=== PATIENT | female | born 1955 | race Caucasian/White ===

== ENCOUNTER 2016-10-30 00:53 | Emergency (ER) | payer OTHER ==
[~2016-10-30] VITALS: Ht 157.5 cm; Wt 68.0 kg
[2016-10-30 01:07] VITALS: Ht 157.5 cm; Wt 68.0 kg
[2016-10-30] MEDS ORDERED: ACETAMINOPHEN 500 MG TAB PO STA (01:55)
[2016-10-30 02:22] VITALS: BP 166/89; PULSE 66; RESP 16
--- NOTE | 2016-10-30 02:24 | RADRPT ---
PROCEDURE: Noncontrast CT Head. CLINICAL INDICATION: Headache. TECHNIQUE: Noncontrast CT of the head was obtained. The administered radiation dose was CTDI vol = 44 mGy, DLP = 720 mGy-cm. COMPARISON: No pertinent prior examinations were submitted for comparison. FINDINGS: The ventricles and sulci are within normal limits. There is no acute intracranial hemorrhage or ext ra-axial fluid collection. There is no mass effect. No midline shift is identified. There is no loss of luna-white differentiation to suggest acute infarction. The orbits are within normal limits. The paranasal sinuses and mastoid air cells are without fluid. No destructive osseous lesion is identified. IMPRESSION: No acute findings. RPTAT: HIKT .Don Elizalde MD, MD Date Time Electronically viewed and signed by .Don Elizalde MD, on 10/30/2016 02:23 .T/
--- NOTE | 2016-10-30 02:31 | ERD ---
ER Documentation Chief Complaint Date/Time DATE: 10/30/16 TIME: 02:29 Chief Complaint hypertension, hx- htn taking bp meds HPI 61-year-old female history of essential hypertension who presents the emergency room with elevated blood pressure and headache. She describes several days of increased blood pressure, it was high as 200s at home, now 180s systolic. She describes a gradual onset diffuse frontal headache that is throbbing and moderate approximately 3 out of 10. No neck pain no chest pain no shortness of breath. She states compliance with medications. ROS All systems reviewed and are negative except as per history of present illness. Allergies Allergies: Coded Allergies: No Known Allergy (Unverified , 10/30/16) FmHx Family History: No diabetes Physical Exam Vitals Vital Signs Date Time Temp Pulse Resp B/P Pulse Ox O2 Delivery O2 Flow Rate FiO2 10/30/16 02:22 66 16 166/89 99 Room Air 10/30/16 01:55 62 16 180/90 100 Room Air 10/30/16 01:07 98.3 67 20 174/87 98 Physical Exam General: Well developed, well nourished, no acute distress Head: Normocephalic, atraumatic. Eyes: Pupils equally reactive, EOM intact ENT: Moist mucous membranes Neck: Supple, no lymphadenopathy Respiratory: Lungs clear bilaterally, no distress Cardiovascular: RRR, no murmurs, rubs, or gallops Abdominal: Soft, non-tender, non-distended, no peritoneal signs : Deferred MSK: No edema, no unilateral swelling, 5/5 strength Neurologic: Alert and oriented, moving all extremities, normal speech, no focal weakness, no cerebellar signs Skin: No rash Psych: Normal mood Results 24 hrs Current Medications Medications (Trade) Dose Ordered Sig/Jennifer Route PRN Reason Start Time Stop Time Status Last Admin Dose Admin Acetaminophen (Tylenol Tab) 1,000 mg ONCE STAT PO 10/30/16 01:55 10/30/16 01:56 DC 10/30/16 02:02 Procedures/MDM EKG, MONITORS, & DIAGNOSTIC IMAGING: CT brain: No acute process MEDICAL DECISION MAKING: Patient's blood pressure was elevated (>120/80) but appears stable without evidence of hypertensive emergency or urgency. The patient was counseled about the risks of hypertension and urged to pursue outpatient monitoring and therapy within a week with their primary care physician. ER COURSE: The patient does have a headache therefore CT imaging of the head is appropriate. She does not have chest pain or shortness of breath or anginal equivalent, no indication for laboratory testing or EKG. The patient was given Tylenol. Blood pressure improved without intervention. The patient is safe for discharge home with close primary care follow-up. We did discuss return precautions. I kept the patient and/or family informed of laboratory and diagnostic imaging results throughout the emergency room course. DISPOSITION PLAN: We discussed follow up with the patient's primary care doctor within 24 to 48 hours as needed. We also discussed return to the emergency room for worsening symptoms or worsening condition. Departure Diagnosis: Primary Impression: Hypertension Hypertension type: essential hypertension Qualified Code: I10 - Essential hypertension Condition: Stable Patient Instructions: High Blood Pressure (Hypertension) Referrals: [facility] YOU HAVE RECEIVED A MEDICAL SCREENING EXAM AND THE RESULTS INDICATE THAT YOU DO NOT HAVE A CONDITION THAT REQUIRES URGENT TREATMENT IN THE EMERGENCY DEPARTMENT. FURTHER EVALUATION AND TREATMENT OF YOUR CONDITION CAN WAIT UNTIL YOU ARE SEEN IN YOUR DOCTORS OFFICE WITHIN THE NEXT 1-2 DAYS. IT IS YOUR RESPONSIBILITY TO MAKE AN APPOINTMENT FOR [facility]. IF YOU HAVE A PRIMARY DOCTOR --you should call your primary doctor and schedule an appointment IF YOU DO NOT HAVE A PRIMARY DOCTOR YOU CAN CALL OUR PHYSICIAN REFERRAL HOTLINE AT IF YOU CAN NOT AFFORD TO SEE A PHYSICIAN YOU CAN CHOSE FROM THE FOLLOWING [facility] [address] [facility]. [facility] [address] [facility]. [facility] [address] [facility] [address] [facility]. [facility] [address] [facility]. [facility]. [address] [facility]. [facility] YOU HAVE RECEIVED A MEDICAL SCREENING EXAM AND THE RESULTS INDICATE THAT YOU DO NOT HAVE A CONDITION THAT REQUIRES URGENT TREATMENT IN THE EMERGENCY DEPARTMENT. FURTHER EVALUATION AND TREATMENT OF YOUR CONDITION CAN WAIT UNTIL YOU ARE SEEN IN YOUR DOCTORS OFFICE WITHIN THE NEXT 1-2 DAYS. IT IS YOUR RESPONSIBILITY TO MAKE AN APPOINTMENT FOR FOLOW-UP CARE. IF YOU HAVE A PRIMARY DOCTOR --you should call your primary doctor and schedule and appointment IF YOU DO NOT HAVE A PRIMARY DOCTOR YOU CAN CALL OUR PHYSICIAN REFERRAL HOTLINE AT . IF YOU CAN NOT AFFORD TO SEE A PHYSICIAN YOU CAN CHOSE FROM THE FOLLOWING [facility], [facility] INSTITUTIONS: [facility] [address] [place] [address] [facility] [address] [place], [place] [id number] [place] [address] [address] [place] [address] Additional Instructions: Call your primary care doctor TOMORROW for an appointment during the next 1 WEEK.Tell the membership secretary that you were referred from this facility.See the doctor sooner or return here if your condition worsens before your appointment time. JACINTA RHODES MD Oct 30, 2016 02:31
== END 2016-10-30 02:36 | disposition home or self-care (01) ==
LOC: E/R 00:53
DX: I10 Essential (primary) hypertension (principal); R51 Headache
CPT/HCPCS: 70450; Z7502; Z7610

== ENCOUNTER 2017-08-23 09:55 | Emergency (ER) | payer OTHER ==
[~2017-08-23] VITALS: Ht 157.5 cm; Wt 66.5 kg
[2017-08-23 09:57] VITALS: Ht 157.5 cm; Wt 66.5 kg
[2017-08-23] MEDS ORDERED: ACETAMINOPHEN 325 MG TAB PO ONE (11:00)
--- NOTE | 2017-08-23 12:10 | RADRPT ---
PROCEDURE: XR LUMBAR SPINE. CLINICAL INDICATION: Back pain TECHNIQUE: 3 views of the lumbar spine were obtained. COMPARISON: No prior studies are available for comparison. FINDINGS: Normal lordotic curvature of the lumbosacral spine is identified. There is no evidence of acute frac tures or subluxation. Mild multilevel degenerative disease is noted.. Vertebral body heights and int ervertebral disc spaces are maintained. The posterior elements appear to be within normal limits. Th e soft tissue structures appear to be within normal limits. IMPRESSION: 1. Mild multilevel degenerative disease of the lumbosacral spine, without evidence of acute fracture s or subluxation. If clinical symptoms persist, or suspicion remains CT scan would be more sensitive . RPTAT: AAPP Physician Sandra Date Time Electronically viewed and signed by Physician Sandra on 08/23/2017 12:09 MARIANELA/
[2017-08-23] MEDS ORDERED: IBUP-1542 PO (12:16)
[2017-08-23] MEDS ORDERED: TRAM50TA2 PO (12:16)
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
== END 2017-08-23 12:48 | disposition home or self-care (01) ==
LOC: FTE 09:55
DX: S33.9XXA Sprain of unspecified parts of lumbar spine and pelvis, initial encounter (principal); V89.2XXA Person injured in unspecified motor-vehicle accident, traffic, initial encounter
CPT/HCPCS: 72100; Z7502; Z7610

== ENCOUNTER 2018-10-17 07:11 | Day surgery (SDC) | payer OTHER ==
[~2018-10-17] VITALS: Ht 156.2 cm; Wt 64.1 kg
[~2018-10-17 07:11] MED LIST: IBUP-1542 PO; TRAM50TA2 PO
[2018-10-17] MEDS ORDERED: LISI-471 PO (08:00)
[2018-10-17 08:01] VITALS: Ht 156.2 cm; Wt 64.1 kg
[2018-10-17 08:59] VITALS: BP 160/86; PULSE 81; RESP 18
[2018-10-17] MEDS ORDERED: MIDAZOLAM 1 MG/ML 2 ML INJ ONE ×2 (09:46)
[2018-10-17] MEDS ORDERED: FENTAnyl 50 MCG/ML VIAL ONE (09:46)
[2018-10-17 10:03] VITALS: BP 137/67; PULSE 77; RESP 22
== END 2018-10-17 11:44 | disposition home or self-care (01) ==
LOC: GIL 07:11
PROVIDERS: ATTEND Internal Medicine Gastroenterology
DX: K92.1 Melena (principal); K64.8 Other hemorrhoids; I10 Essential (primary) hypertension
CPT/HCPCS: 43239; 88305; J2250; J3010; Z7610

== ENCOUNTER 2019-03-11 14:42 | Emergency (ER) | payer OTHER ==
[~2019-03-11] VITALS: Ht 157.5 cm; Wt 65.8 kg
[~2019-03-11 14:42] MED LIST changes: -IBUP-1542 PO; +LISI-471 PO; -TRAM50TA2 PO
[2019-03-11 14:46] VITALS: BP 149/84; PULSE 70; RESP 18; Ht 157.5 cm; Wt 65.8 kg
[2019-03-11] MEDS ORDERED: IBUPROFEN 800 MG TAB PO ONE (15:30)
[2019-03-11] MEDS ORDERED: IBUP800T48 PO (16:45)
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
== END 2019-03-11 16:51 | disposition home or self-care (01) ==
LOC: FTE 14:42
DX: M54.5 Low back pain (principal); I10 Essential (primary) hypertension
CPT/HCPCS: 72040; 72072; 72100; Z7502; Z7610